=== PATIENT | female | born 1995 | race Caucasian/White ===

== ENCOUNTER 2021-08-03 07:51 | Emergency (ER) | payer OTHER ==
[2021-08-03 08:53] LABS: HEMOGLOBIN 14.3 gm/dl (12.3-15.3); RED BLOOD COUNT 4.8 M/UL (4.00-5.10); WHITE BLOOD COUNT 11.7 K/UL (4.5-11.0)
[2021-08-03 09:14] LABS: BUN/CREATININE RATIO 19 (0-10)
[2021-08-03] MEDS ORDERED: ZOFRAN ODT 4 MG4 MG SL (10:37)
== END 2021-08-03 11:08 | disposition home or self-care (01) ==
LOC: ER1 07:51
PROVIDERS: Emergency Medicine
DX: K80.70 Calculus of gallbladder and bile duct without cholecystitis without obstruction (principal); E66.9 Obesity, unspecified
CPT/HCPCS: 76705; 80053; 81001; 83690; 84703; 85025; 93005; 99284